=== PATIENT | female | born 1955 | race Caucasian/White ===

== ENCOUNTER 2024-07-29 06:57 | Day surgery (SDC) | payer MEDICARE, OTHER, SELFPAY ==
--- NOTE | 2024-07-29 07:32 | PM.HP.IH.1 ---
History of Present Illness History of Present Illness Date Patient Seen: 07/29/24 Time Patient Seen: 08:10 Chief complaint: SDC Narrative: positive FIT test for screenign colonoscopy [facility] Social History Smoking Status: Never smoker Comment: aunt with colon cancer Meds Home Medications and Allergies Home Medications Medication Instructions Recorded Confirmed Type atorvastatin 20 mg tablet (Lipitor) 20 mg PO DAILY 07/29/24 07/29/24 History progesterone micronized 100 mg 100 mg PO QAM 07/29/24 07/29/24 History capsule Review of Systems Review of Systems Narrative: no weight loss, BRBPR, hematochezia ROS: Yes All systems reviewed with the patient and are negative except as otherwise documented Exam Const General: cooperative Orientation: alert and awake HENMT Head: normal to inspection Resp Effort & Inspection: normal respiratory effort GI Inspection: normal to inspection Palpation: soft Assessment & Plan Assessment & Plan narrative: positive FIT test, screening colonoscopy. consent signed questinos answered Time-Based Coding :: [TOTAL MINUTES] spent with patient and on the chart (including review of chart, obtaining history, exam, reviewing outside data, placing orders, documenting exam and treatment plan, and counseling patient) on [DATE]. [employer] Document charge(s): Yes
[2024-07-29] MEDS: LACTATED RINGERS 1,000 ML 42 ML IV (07:34)
[2024-07-29 07:36] VITALS: BP 112/79; PULSE 86; RESP 20; TEMP 36.6; O2SAT 98
[2024-07-29 08:48] VITALS: BP 97/55; PULSE 71; RESP 19; TEMP 36.6; O2SAT 96
--- NOTE | 2024-07-29 08:51 | PM.OP.COLON ---
Operative Date/Time/Diagnoses Date of procedure: 07/29/24 Time of procedure: 08:51 Pre-op diagnosis: positive fit Post-op diagnosis: same Procedure & Clinicians Study performed: Colonoscopy Same procedure as scheduled: Yes Indications: Positive fecal chest Surgeon: Justin Marshall Procedure Notes SCOAP/Timeout: Performed Procedure in detail: Patient seen in the preop area, H and P updated, positive fecal occult testing. Patient reported prep was adequate. Patient brought back to procedure room, time-out was performed verifying correct patient procedure. She was given sedation. External rectal exam was performed with no identified fissures, or external hemorrhoids of significance. Some skin tags. Digital rectal exam performed with no masses or blood. Colonoscope placed, colon insufflated, adequacy of prep was adequate but not perfect the scope was passed without difficulty to the cecum, verified by identification of the tinea. And palpation The scope was withdrawn with circumferential view of the colon, areas occluded by bowel prep or cleaned as much as possible. No lesions were identified upon removal of the scope. The scope was retroflexed in the rectum and no internal hemorrhoids were identified air was withdrawn from the colon, scope was withdrawn, and the patient was brought to the recovery area in stable condition. Scope withdrawal time: 11 minutes Findings: other findings (Normal exam) Specimen(s): none sent Complications: none Impression: Normal exam, Post-procedure Recommendations: Colonoscopy in 10 years Follow up: as needed Disposition: PACU
[2024-07-29 08:55] VITALS: BP 103/60; PULSE 77; RESP 14; O2SAT 92
[2024-07-29 09:10] VITALS: BP 106/76; PULSE 76; RESP 16; TEMP 36.1; O2SAT 98
== END 2024-07-29 09:17 | disposition home or self-care (01) ==
PROVIDERS: PCP Registered Nurse
DX: Z12.11 Encounter for screening for malignant neoplasm of colon (principal); R19.5 Other fecal abnormalities
CPT/HCPCS: G0121; J2704